=== PATIENT | male | born 1970 | race Caucasian/White ===

== ENCOUNTER 2024-11-18 17:05 | Emergency (ER) | payer BC ==
[2024-11-18] MEDS ORDERED: amLODIPine BESYLATE 5 MG TABLET (FP) ONE (17:21)
[2024-11-18] MEDS: amLODIPine BESYLATE 10 MG TABLET (FP) PO ONE (17:24)
[2024-11-18 17:33] VITALS: RESP 18; TEMP 98.2; BMI 27.8
[2024-11-18 18:00] VITALS: BP 151/98; PULSE 97
== END 2024-11-18 18:20 | disposition home or self-care (01) ==
LOC: FER 17:05
DX: I10 Essential (primary) hypertension (principal)
CPT/HCPCS: 99283-25